=== PATIENT | male | born 1940 | race Caucasian/White ===

== ENCOUNTER 2017-09-09 16:32 | Observation (INO) | payer OTHER ==
[~2017-09-09] VITALS: Ht 165.1 cm; Wt 80.1 kg
[~2017-09-09 16:32] MED LIST: ALLO300 PO; AMLO10 PO; AMLO5; AMLO5 PO; ASPI325; ASPI81CH PO; ASPI81EC; ASPI81EC PO; ATOR10; ATOR40TA; ATOR80 PO; BUME2 PO; CARI350; CARV6.25 PO; CEPH500 PO; CLOP75; CLOP75 PO; DABI150C PO; DIGO.25 PO; DOCU100; DUETACT; DUETACT PO; FURO40; FURO40 PO; FURO80; GLIM4 PO; GLIMEPIRIDE; GLIP5; HYDACE5 PO; HYZAAR; LISI20; LISI5 PO; LOSHYD; LOSHYD100 PO; METAGLIP; METF500; METO100; METO50; NIFE90ER; PIOG30 PO; PIOGLITAZONE; POTA10T; POTA10T PO; POTCHL10ER PO; POTCHL20ER; PRAV20; PRAV40 PO; RAMI5; RXCEPH500 PO; SPIR25; SULTRIDS PO; Sotalol80 MG PO; [UNRECOGNIZED DRUG - OTHER]; [UNRECOGNIZED DRUG - OTHER] PO; [UNRECOGNIZED DRUG - REMARK]; metformin
[2017-09-09 17:16] LABS: BASOPHILS ABSOLUTE AUTO 0.03 K/mm3 (0.00-0.23); BASOPHILS PERCENT AUTO 0 % (0-2); EOSINOPHILS ABSOLUTE AUTO 0.09 K/mm3 (0.00-0.68); EOSINOPHILS PERCENT AUTO 1 % (0-6); Hematocrit 45.7 % (37.0-53.0); Hemoglobin 14.9 g/dL (13.5-17.5); IMMATURE GRAN ABSOLUTE AUTO 0.03 K/mm3 (0.00-0.10); IMMATURE GRAN PERCENT AUTO 0 % (0-1); LYMPHOCYTES ABSOLUTE AUTO 2.85 K/mm3 (0.84-5.20); LYMPHOCYTES PERCENT AUTO 20 % (21-46); MONOCYTES ABSOLUTE AUTO 0.94 K/mm3 (0.16-1.47); MONOCYTES PERCENT AUTO 7 % (4-13); Mean Corpuscular HGB 31.8 pg (26.0-34.0); Mean Corpuscular HGB Conc 32.6 g/dL (31.5-36.5); Mean Corpuscular Volume 98 fL (80-100); NEUTROPHILS ABSOLUTE AUTO 10.42 K/mm3 (1.96-9.15); NEUTROPHILS PERCENT AUTO 73 % (41-73); Platelet Count 203 K/mm3 (150-400); RDW Standard Deviation 50.4 fL (35.1-46.3); Red Blood Cell Count 4.68 M/mm3 (4.30-5.90); White Blood Cell Count 14.36 K/mm3 (4.00-11.30)
[2017-09-09 17:34] LABS: Bicarbonate Venous 29.1 mmol/L (24.0-30.0); PCO2 Venous 37.4 mmHg (38-42); PO2 Venous 42.5 mmHg (38-42)
[2017-09-09 17:38] LABS: Alanine Aminotransfer (ALT/SGP 38 U/L (12-78); Albumin/Globulin Ratio 1.1 (0.8-1.8); Alk Phos 159 U/L (50-136); Anion Gap 7 mmol/L (6-16); Aspartate Aminotrans (AST/SGOT 44 U/L (12-37); Bilirubin, Total 0.9 mg/dL (0.1-1.0); Blood Urea Nitrogen 29 mg/dL (8-24); Bun/Creatinine Ratio 28.2 (12.0-20.0); CO2, Blood 28 mmol/L (21-32); Calcium, Blood 9.6 mg/dL (8.5-10.1); Chloride, Blood 104 mmol/L (98-108); Creatinine, Blood 1.03 mg/dL (0.60-1.20); Globulin, Blood 3.8 g/dL (2.2-4.0); Glomerular Filtration Rate >60 (60-); Glucose, Blood 88 mg/dL (70-99); Potassium, Blood 4.4 mmol/L (3.5-5.5); Sodium, Blood 139 mmol/L (136-145); Total Protein, Blood 7.8 g/dL (6.4-8.2); Troponin I 0.028 ng/mL (0.000-0.040)
[2017-09-09 19:09] LABS: Source, Urine Catheter
[2017-09-09 19:21] LABS: Appearance, Urine Clear (Clear); Bilirubin, Urine Neg (Neg); Blood, Urine Neg (Neg); Color, Urine Yellow (P-Yellow); Glucose Qualitative, Urine 3+ (Neg); Ketones, Urine 1+ (Neg); Leukocyte Esterase, Urine Neg (Neg); Nitrite, Urine Neg (Neg); Protein, Urine Neg (Neg); Urobilinogen, Urine NORM (Normal)
[2017-09-09 20:39] LABS: International Normalized Ratio 1.13; Prothrombin Time Results 11.8 Sec (9.7-11.5)
[2017-09-10 06:05] LABS: BASOPHILS ABSOLUTE AUTO 0.03 K/mm3 (0.00-0.23); BASOPHILS PERCENT AUTO 0 % (0-2); EOSINOPHILS ABSOLUTE AUTO 0.03 K/mm3 (0.00-0.68); EOSINOPHILS PERCENT AUTO 0 % (0-6); Hematocrit 40.1 % (37.0-53.0); Hemoglobin 13.2 g/dL (13.5-17.5); IMMATURE GRAN ABSOLUTE AUTO 0.03 K/mm3 (0.00-0.10); IMMATURE GRAN PERCENT AUTO 0 % (0-1); LYMPHOCYTES ABSOLUTE AUTO 1.94 K/mm3 (0.84-5.20); LYMPHOCYTES PERCENT AUTO 21 % (21-46); MONOCYTES ABSOLUTE AUTO 1.13 K/mm3 (0.16-1.47); MONOCYTES PERCENT AUTO 12 % (4-13); Mean Corpuscular HGB 31.7 pg (26.0-34.0); Mean Corpuscular HGB Conc 32.9 g/dL (31.5-36.5); Mean Corpuscular Volume 96 fL (80-100); Mean Platelet Volume 10.2 fL (9.1-12.4); NEUTROPHILS ABSOLUTE AUTO 6.02 K/mm3 (1.96-9.15); NEUTROPHILS PERCENT AUTO 66 % (41-73); Platelet Count 177 K/mm3 (150-400); RDW Coefficient Variation 14.3 % (11.7-14.2); RDW Standard Deviation 49.8 fL (35.1-46.3); Red Blood Cell Count 4.17 M/mm3 (4.30-5.90); White Blood Cell Count 9.18 K/mm3 (4.00-11.30)
[2017-09-10 06:47] LABS: Alanine Aminotransfer (ALT/SGP 29 U/L (12-78); Albumin, Blood 3.1 g/dL (3.4-5.0); Albumin/Globulin Ratio 0.9 (0.8-1.8); Alk Phos 122 U/L (50-136); Anion Gap 8 mmol/L (6-16); Aspartate Aminotrans (AST/SGOT 23 U/L (12-37); Bilirubin, Total 1.2 mg/dL (0.1-1.0); Blood Urea Nitrogen 26 mg/dL (8-24); Bun/Creatinine Ratio 22.8 (12.0-20.0); CO2, Blood 31 mmol/L (21-32); Calcium, Blood 8.5 mg/dL (8.5-10.1); Chloride, Blood 103 mmol/L (98-108); Creatinine, Blood 1.14 mg/dL (0.60-1.20); Globulin, Blood 3.3 g/dL (2.2-4.0); Glomerular Filtration Rate >60 (60-); Glucose, Blood 60 mg/dL (70-99); Potassium, Blood 3.4 mmol/L (3.5-5.5); Sodium, Blood 142 mmol/L (136-145); Total Protein, Blood 6.4 g/dL (6.4-8.2)
[2017-09-10 15:48] LABS: Source, Urine Clean Catch
[2017-09-10 15:58] LABS: Appearance, Urine Clear (Clear); Bilirubin, Urine Neg (Neg); Blood, Urine 1+ (Neg); Color, Urine Yellow (P-Yellow); Glucose Qualitative, Urine 4+ (Neg); Ketones, Urine Neg (Neg); Leukocyte Esterase, Urine Neg (Neg); Nitrite, Urine Neg (Neg); Protein, Urine Neg (Neg); Specific Gravity, Urine 1.015 (1.003-1.022); Urobilinogen, Urine NORM (Normal)
[2017-09-10 16:23] LABS: Bacteria Not Seen /hpf; Squamous Epithelial Cells Few /hpf (Few); White Blood Cells, Urine 0-2 /hpf (0-5)
[2017-09-11 05:18] LABS: BASOPHILS ABSOLUTE AUTO 0.01 K/mm3 (0.00-0.23); BASOPHILS PERCENT AUTO 0 % (0-2); EOSINOPHILS ABSOLUTE AUTO 0.17 K/mm3 (0.00-0.68); EOSINOPHILS PERCENT AUTO 2 % (0-6); Hematocrit 39.1 % (37.0-53.0); Hemoglobin 12.8 g/dL (13.5-17.5); IMMATURE GRAN ABSOLUTE AUTO 0.02 K/mm3 (0.00-0.10); IMMATURE GRAN PERCENT AUTO 0 % (0-1); LYMPHOCYTES ABSOLUTE AUTO 1.68 K/mm3 (0.84-5.20); LYMPHOCYTES PERCENT AUTO 23 % (21-46); MONOCYTES ABSOLUTE AUTO 0.78 K/mm3 (0.16-1.47); MONOCYTES PERCENT AUTO 11 % (4-13); Mean Corpuscular HGB 31.7 pg (26.0-34.0); Mean Corpuscular HGB Conc 32.7 g/dL (31.5-36.5); Mean Corpuscular Volume 97 fL (80-100); Mean Platelet Volume 10.4 fL (9.1-12.4); NEUTROPHILS ABSOLUTE AUTO 4.63 K/mm3 (1.96-9.15); NEUTROPHILS PERCENT AUTO 64 % (41-73); Platelet Count 161 K/mm3 (150-400); RDW Coefficient Variation 14.3 % (11.7-14.2); RDW Standard Deviation 50.9 fL (35.1-46.3); Red Blood Cell Count 4.04 M/mm3 (4.30-5.90); White Blood Cell Count 7.29 K/mm3 (4.00-11.30)
[2017-09-11 05:45] LABS: Alanine Aminotransfer (ALT/SGP 25 U/L (12-78); Albumin, Blood 2.8 g/dL (3.4-5.0); Albumin/Globulin Ratio 0.8 (0.8-1.8); Alk Phos 110 U/L (50-136); Anion Gap 8 mmol/L (6-16); Aspartate Aminotrans (AST/SGOT 26 U/L (12-37); Bilirubin, Total 0.9 mg/dL (0.1-1.0); Blood Urea Nitrogen 26 mg/dL (8-24); CO2, Blood 33 mmol/L (21-32); Calcium, Blood 8.7 mg/dL (8.5-10.1); Chloride, Blood 102 mmol/L (98-108); Creatinine, Blood 1.13 mg/dL (0.60-1.20); Globulin, Blood 3.4 g/dL (2.2-4.0); Glomerular Filtration Rate >60 (60-); Glucose, Blood 111 mg/dL (70-99); Potassium, Blood 3.6 mmol/L (3.5-5.5); Sodium, Blood 143 mmol/L (136-145); Total Protein, Blood 6.2 g/dL (6.4-8.2)
[2017-09-11 05:52] LABS: Thyroid Stimulating Hormone 0.375 uIU/mL (0.360-4.800)
[2017-09-11] MEDS ORDERED: Acetaminophen325 M1 PO (14:35)
== END 2017-09-11 14:05 | disposition home or self-care (01) ==
LOC: ER 16:32 → MEDS 16:33 → ER 19:42 → MEDS 21:06
PROVIDERS: Emergency Medicine; Internal Medicine
DX: M79.605 Pain in left leg (principal); M10.9 Gout, unspecified; I48.2 Chronic atrial fibrillation; E78.5 Hyperlipidemia, unspecified; I13.0 Hypertensive heart and chronic kidney disease with heart failure and stage 1 through stage 4 chronic kidney disease, or unspecified chronic kidney disease; I50.9 Heart failure, unspecified; E11.22 Type 2 diabetes mellitus with diabetic chronic kidney disease; N18.9 Chronic kidney disease, unspecified; I25.10 Atherosclerotic heart disease of native coronary artery without angina pectoris; W19.XXXA Unspecified fall, initial encounter; Z86.73 Personal history of transient ischemic attack (TIA), and cerebral infarction without residual deficits; Z79.4 Long term (current) use of insulin; Z79.01 Long term (current) use of anticoagulants; Z79.82 Long term (current) use of aspirin
CPT/HCPCS: 36415; 70450; 71045; 72170; 73552; 73562-LT; 80053; 81001; 81003; 82803; 82947; 83605; 83880; 84443; 84484; 85025; 85610; 93005; 93010; 93306; 96361; 96374; 96375; 97110; 97116; 97162; 97165; 97530; 97535; 99285; G8978; G8979; G8987; G8988; G8989; J1650; J2405; J3010; J7120

== ENCOUNTER 2018-01-02 04:01 | Inpatient (IN) | payer OTHER ==
[~2018-01-02] VITALS: Ht 165.1 cm; Wt 75.0 kg
[~2018-01-02 04:01] MED LIST changes: +Acetaminophen325 M1 PO
[2018-01-02 04:15] LABS: Calcium, Ionized (POC) 1.28 mmol/L (1.10-1.46); Chloride (POC) 99 mmol/L (98-108); Creatinine (POC) 1.2 mg/dL (0.8-1.3); Glucose (ISTAT POC) 146 mg/dL (70-99); Potassium (POC) 3.6 mmol/L (3.5-5.5); Sodium (POC) 140 mmol/L (135-148); Total CO2 (POC) 30 mmol/L (21-32)
[2018-01-02 04:25] LABS: BASOPHILS ABSOLUTE AUTO 0.05 K/mm3 (0.00-0.23); BASOPHILS PERCENT AUTO 1 % (0-2); EOSINOPHILS ABSOLUTE AUTO 0.28 K/mm3 (0.00-0.68); EOSINOPHILS PERCENT AUTO 3 % (0-6); Hemoglobin 13.9 g/dL (13.5-17.5); IMMATURE GRAN ABSOLUTE AUTO 0.03 K/mm3 (0.00-0.10); IMMATURE GRAN PERCENT AUTO 0 % (0-1); LYMPHOCYTES ABSOLUTE AUTO 3.23 K/mm3 (0.84-5.20); LYMPHOCYTES PERCENT AUTO 32 % (21-46); MONOCYTES ABSOLUTE AUTO 0.53 K/mm3 (0.16-1.47); MONOCYTES PERCENT AUTO 5 % (4-13); Mean Corpuscular HGB Conc 32.3 g/dL (31.5-36.5); Mean Corpuscular Volume 96 fL (80-100); Mean Platelet Volume 9.9 fL (9.1-12.4); NEUTROPHILS ABSOLUTE AUTO 6.07 K/mm3 (1.96-9.15); NEUTROPHILS PERCENT AUTO 60 % (41-73); Platelet Count 240 K/mm3 (150-400); RDW Coefficient Variation 16.1 % (11.7-14.2); RDW Standard Deviation 56.8 fL (35.1-46.3); Red Blood Cell Count 4.48 M/mm3 (4.30-5.90); White Blood Cell Count 10.19 K/mm3 (4.00-11.30)
[2018-01-02 04:48] LABS: Alanine Aminotransfer (ALT/SGP 17 U/L (12-78); Albumin, Blood 3.5 g/dL (3.4-5.0); Albumin/Globulin Ratio 0.9 (0.8-1.8); Alk Phos 144 U/L (50-136); Anion Gap 9 mmol/L (6-16); Aspartate Aminotrans (AST/SGOT 112 U/L (12-37); Bilirubin, Total 0.8 mg/dL (0.1-1.0); Blood Urea Nitrogen 28 mg/dL (8-24); Bun/Creatinine Ratio 25.2 (12.0-20.0); CO2, Blood 30 mmol/L (21-32); Calcium, Blood 9.6 mg/dL (8.5-10.1); Chloride, Blood 103 mmol/L (98-108); Creatinine, Blood 1.11 mg/dL (0.60-1.20); Globulin, Blood 3.9 g/dL (2.2-4.0); Glomerular Filtration Rate >60 (60-); Glucose, Blood 149 mg/dL (70-99); Magnesium, Blood 2.3 mg/dL (1.6-2.4); Potassium, Blood 3.7 mmol/L (3.5-5.5); Sodium, Blood 142 mmol/L (136-145); Total Protein, Blood 7.4 g/dL (6.4-8.2)
[2018-01-02 05:11] LABS: International Normalized Ratio 1.12; Prothrombin Time Results 11.5 Sec (9.7-11.5)
[2018-01-02 05:48] LABS: CHOL/HDL RATIO 2.3; Cholesterol 98 mg/dL (50-200); HDL Cholesterol 43 mg/dL (>39); LDL/HDL RATIO 0.8; Low Density Lipoprotein Chol 36 mg/dL (0-110); Triglycerides 97 mg/dL (30-160); Very Low Density Lipoprot Chol 19 mg/dL (6-32)
[2018-01-03 04:11] LABS: BASOPHILS ABSOLUTE AUTO 0.02 K/mm3 (0.00-0.23); BASOPHILS PERCENT AUTO 0 % (0-2); EOSINOPHILS ABSOLUTE AUTO 0.07 K/mm3 (0.00-0.68); EOSINOPHILS PERCENT AUTO 1 % (0-6); Hematocrit 40.3 % (37.0-53.0); Hemoglobin 13.4 g/dL (13.5-17.5); IMMATURE GRAN ABSOLUTE AUTO 0.03 K/mm3 (0.00-0.10); IMMATURE GRAN PERCENT AUTO 0 % (0-1); LYMPHOCYTES ABSOLUTE AUTO 1.61 K/mm3 (0.84-5.20); LYMPHOCYTES PERCENT AUTO 18 % (21-46); MONOCYTES PERCENT AUTO 9 % (4-13); Mean Corpuscular HGB 31.6 pg (26.0-34.0); Mean Corpuscular HGB Conc 33.3 g/dL (31.5-36.5); Mean Corpuscular Volume 95 fL (80-100); Mean Platelet Volume 9.8 fL (9.1-12.4); NEUTROPHILS ABSOLUTE AUTO 6.38 K/mm3 (1.96-9.15); NEUTROPHILS PERCENT AUTO 72 % (41-73); Platelet Count 190 K/mm3 (150-400); RDW Standard Deviation 55.7 fL (35.1-46.3); Red Blood Cell Count 4.24 M/mm3 (4.30-5.90); White Blood Cell Count 8.91 K/mm3 (4.00-11.30)
[2018-01-03 04:34] LABS: Alanine Aminotransfer (ALT/SGP 54 U/L (12-78); Albumin, Blood 2.9 g/dL (3.4-5.0); Albumin/Globulin Ratio 0.8 (0.8-1.8); Alk Phos 131 U/L (50-136); Anion Gap 9 mmol/L (6-16); Aspartate Aminotrans (AST/SGOT 338 U/L (12-37); Bilirubin, Total 1.2 mg/dL (0.1-1.0); Blood Urea Nitrogen 31 mg/dL (8-24); Bun/Creatinine Ratio 27.7 (12.0-20.0); CO2, Blood 31 mmol/L (21-32); Calcium, Blood 8.2 mg/dL (8.5-10.1); Chloride, Blood 99 mmol/L (98-108); Creatinine, Blood 1.12 mg/dL (0.60-1.20); Globulin, Blood 3.6 g/dL (2.2-4.0); Glomerular Filtration Rate >60 (60-); Glucose, Blood 134 mg/dL (70-99); Potassium, Blood 3.1 mmol/L (3.5-5.5); Sodium, Blood 139 mmol/L (136-145); Total Protein, Blood 6.5 g/dL (6.4-8.2)
[2018-01-04 04:31] LABS: Anion Gap 7 mmol/L (6-16); Blood Urea Nitrogen 33 mg/dL (8-24); Bun/Creatinine Ratio 32.7 (12.0-20.0); CO2, Blood 32 mmol/L (21-32); Calcium, Blood 8.4 mg/dL (8.5-10.1); Chloride, Blood 102 mmol/L (98-108); Creatinine, Blood 1.01 mg/dL (0.60-1.20); Glomerular Filtration Rate >60 (60-); Glucose, Blood 95 mg/dL (70-99); Potassium, Blood 3.8 mmol/L (3.5-5.5); Sodium, Blood 141 mmol/L (136-145)
[2018-01-05] MEDS ORDERED: ELIQUIS5 MG PO (14:30)
[2018-01-05] MEDS ORDERED: CARV6.25 PO (14:30)
[2018-01-05] MEDS ORDERED: POTCHL20ER PO (14:33)
[2018-01-05] MEDS ORDERED: SPIR25 PO (14:33)
[2018-01-05] MEDS ORDERED: FURO80 PO (14:34)
== END 2018-01-05 15:30 | disposition home or self-care (01) | DRG 280 ==
LOC: ER 04:01 → PCU 05:32
PROVIDERS: Emergency Medicine; Internal Medicine; Internal Medicine Cardiovascular Disease
DX: I21.4 Non-ST elevation (NSTEMI) myocardial infarction (principal); I50.43 Acute on chronic combined systolic (congestive) and diastolic (congestive) heart failure; J96.01 Acute respiratory failure with hypoxia; I48.92 Unspecified atrial flutter; I13.0 Hypertensive heart and chronic kidney disease with heart failure and stage 1 through stage 4 chronic kidney disease, or unspecified chronic kidney disease; I25.10 Atherosclerotic heart disease of native coronary artery without angina pectoris; I25.5 Ischemic cardiomyopathy; I35.0 Nonrheumatic aortic (valve) stenosis; G20 Parkinson's disease; R26.81 Unsteadiness on feet; N18.9 Chronic kidney disease, unspecified; Z95.1 Presence of aortocoronary bypass graft; Z86.73 Personal history of transient ischemic attack (TIA), and cerebral infarction without residual deficits; Z87.891 Personal history of nicotine dependence; Z66 Do not resuscitate; I25.2 Old myocardial infarction; E87.6 Hypokalemia; Z79.01 Long term (current) use of anticoagulants; Z79.82 Long term (current) use of aspirin
CPT/HCPCS: 36415; 71045; 80047; 80048; 80053; 80061; 82947; 83036; 83735; 83880; 84484; 85014; 85025; 85610; 85730; 93005; 93010; 93306; 94660; 94762; 96365; 96375; 97116; 97161; 99285-25; G8978; G8979; G8980; J1644; J1815; J1940

== ENCOUNTER → 2018-09-17 | Outpatient (CLI) | payer OTHER ==
[~2018-09-17] MED LIST changes: +ELIQUIS5 MG PO; +FURO80 PO; +POTCHL20ER PO; +SPIR25 PO
== END | disposition home or self-care (01) ==
LOC: LAB SHORT 12:10 → PLD 12:10
DX: D04.21 Carcinoma in situ of skin of right ear and external auricular canal (principal)
CPT/HCPCS: 88305

== ENCOUNTER 2018-12-13 13:48 | Inpatient (IN) | payer OTHER ==
[~2018-12-13] VITALS: Ht 167.6 cm; Wt 87.3 kg
[2018-12-13 14:13] LABS: BASOPHILS ABSOLUTE AUTO 0.04 K/mm3 (0.00-0.23); BASOPHILS PERCENT AUTO 1 % (0-2); EOSINOPHILS ABSOLUTE AUTO 0.13 K/mm3 (0.00-0.68); EOSINOPHILS PERCENT AUTO 2 % (0-6); Hematocrit 37.6 % (37.0-53.0); Hemoglobin 11.7 g/dL (13.5-17.5); IMMATURE GRAN ABSOLUTE AUTO 0.02 K/mm3 (0.00-0.10); IMMATURE GRAN PERCENT AUTO 0 % (0-1); LYMPHOCYTES ABSOLUTE AUTO 1.79 K/mm3 (0.84-5.20); LYMPHOCYTES PERCENT AUTO 22 % (21-46); MONOCYTES ABSOLUTE AUTO 0.57 K/mm3 (0.16-1.47); MONOCYTES PERCENT AUTO 7 % (4-13); Mean Corpuscular HGB Conc 31.1 g/dL (31.5-36.5); Mean Corpuscular Volume 93 fL (80-100); Mean Platelet Volume 10.8 fL (9.1-12.4); NEUTROPHILS PERCENT AUTO 69 % (41-73); Platelet Count 192 K/mm3 (150-400); RDW Coefficient Variation 15.9 % (11.7-14.2); RDW Standard Deviation 54.5 fL (35.1-46.3); Red Blood Cell Count 4.04 M/mm3 (4.30-5.90); White Blood Cell Count 8.15 K/mm3 (4.00-11.30)
[2018-12-13 14:55] LABS: Alanine Aminotransfer (ALT/SGP 33 U/L (12-78); Albumin, Blood 3.3 g/dL (3.4-5.0); Albumin/Globulin Ratio 1.1 (0.8-1.8); Alk Phos 168 U/L (50-136); Anion Gap 5 mmol/L (6-16); Aspartate Aminotrans (AST/SGOT 46 U/L (12-37); Bilirubin, Total 1.4 mg/dL (0.1-1.0); Blood Urea Nitrogen 31 mg/dL (8-24); Bun/Creatinine Ratio 27.2 (12.0-20.0); CO2, Blood 28 mmol/L (21-32); Calcium, Blood 8.2 mg/dL (8.5-10.1); Chloride, Blood 108 mmol/L (98-108); Creatinine, Blood 1.14 mg/dL (0.60-1.20); Globulin, Blood 3.1 g/dL (2.2-4.0); Glomerular Filtration Rate >60 (60-); Glucose, Blood 217 mg/dL (70-99); Potassium, Blood 4.1 mmol/L (3.5-5.5); Sodium, Blood 141 mmol/L (136-145); Total Protein, Blood 6.4 g/dL (6.4-8.2)
[2018-12-13 14:56] LABS: Troponin I 0.023 ng/mL (0.000-0.040)
[2018-12-13 19:27] LABS: International Normalized Ratio 1.2; Prothrombin Time Results 12.5 Sec (9.7-11.5)
--- NOTE | 2018-12-13 20:00 | NUR ---
PCU ADMIT PT BROUGHT TO PCU RM 11 FROM THE ER BY JINNY @ APPROX 1930. PT A&O X4. PT ABLE TO STAND AND AMBULATE TO PCU BED W/ SBA. PT LUNG SOUNDS CLEAR. SPO2 > 92% ON RA. MONITOR SHOWS RHYTHM W/ BIGEMINAL PVC'S, HR 60-80. PT DENIES LOSING CONSCIOUSNESS AT [facility] PRIOR TO ADMISSION. PT STATES "I FEEL FINE" AND STATES READINESS TO GO HOME. PT ALSO STATES HAVING AN APPOINTMENT SCHEDULED W/ MD GAMEZ THIS SATURDAY. WILL CONTINUE TO MONITOR AND PROVIDE CARE.
[2018-12-13] MEDS ORDERED: ALLO300 PO (20:08)
[2018-12-13] MEDS ORDERED: GABA300 PO (20:09)
[2018-12-13] MEDS ORDERED: Carbidopa-Levo1 EACH PO (20:09)
[2018-12-13] MEDS ORDERED: RYTARY ER 48.71 EACH PO (20:10)
--- NOTE | 2018-12-14 01:00 | NUR ---
PT STATES FEELING SOB WHILE RESTING IN BED. SPO2 87-89% ON RA. 2L NC APPLIED W/ SPO2 NOW 94%.
[2018-12-14 02:13] LABS: BASOPHILS ABSOLUTE AUTO 0.04 K/mm3 (0.00-0.23); BASOPHILS PERCENT AUTO 1 % (0-2); EOSINOPHILS ABSOLUTE AUTO 0.19 K/mm3 (0.00-0.68); EOSINOPHILS PERCENT AUTO 2 % (0-6); Hematocrit 35.1 % (37.0-53.0); Hemoglobin 10.8 g/dL (13.5-17.5); IMMATURE GRAN ABSOLUTE AUTO 0.02 K/mm3 (0.00-0.10); IMMATURE GRAN PERCENT AUTO 0 % (0-1); LYMPHOCYTES PERCENT AUTO 18 % (21-46); MONOCYTES ABSOLUTE AUTO 0.54 K/mm3 (0.16-1.47); MONOCYTES PERCENT AUTO 7 % (4-13); Mean Corpuscular HGB 29.3 pg (26.0-34.0); Mean Corpuscular HGB Conc 30.8 g/dL (31.5-36.5); Mean Corpuscular Volume 95 fL (80-100); Mean Platelet Volume 10.7 fL (9.1-12.4); NEUTROPHILS ABSOLUTE AUTO 6.03 K/mm3 (1.96-9.15); NEUTROPHILS PERCENT AUTO 73 % (41-73); Platelet Count 157 K/mm3 (150-400); RDW Coefficient Variation 15.9 % (11.7-14.2); RDW Standard Deviation 55.7 fL (35.1-46.3); Red Blood Cell Count 3.69 M/mm3 (4.30-5.90); White Blood Cell Count 8.32 K/mm3 (4.00-11.30)
[2018-12-14 02:35] LABS: Alanine Aminotransfer (ALT/SGP 42 U/L (12-78); Albumin, Blood 2.9 g/dL (3.4-5.0); Alk Phos 150 U/L (50-136); Anion Gap 5 mmol/L (6-16); Aspartate Aminotrans (AST/SGOT 40 U/L (12-37); Bilirubin, Total 0.7 mg/dL (0.1-1.0); Blood Urea Nitrogen 27 mg/dL (8-24); Bun/Creatinine Ratio 25.2 (12.0-20.0); CO2, Blood 30 mmol/L (21-32); Calcium, Blood 8.3 mg/dL (8.5-10.1); Chloride, Blood 108 mmol/L (98-108); Creatinine, Blood 1.07 mg/dL (0.60-1.20); Globulin, Blood 2.8 g/dL (2.2-4.0); Glomerular Filtration Rate >60 (60-); Glucose, Blood 172 mg/dL (70-99); Potassium, Blood 3.6 mmol/L (3.5-5.5); Sodium, Blood 143 mmol/L (136-145); Total Protein, Blood 5.7 g/dL (6.4-8.2)
--- NOTE | 2018-12-14 06:39 | NUR ---
SHIFT SUMMARY PT A&O X4. VSS. PT ON RA ON ARRIVAL, NOW WEARING 2L NC. OTHERWISE NO CHANGES. MONITOR CONTINUES TO SHOW RHYTHM W/ FREQUENT PVC'S. HR 60-80. HEPARIN GTT INFUSING PER ORDERS. CARDIAC CONSULT CALLED TO ANSWERING SERVICE. WILL CONTINUE TO MONITOR AND PROVIDE CARE UNTIL REPORT OFF TO DAY SHIFT RN.
--- NOTE | 2018-12-14 09:00 | NUR ---
DR. QUINTANA IN ROOM. PT WAS CONVERSING AND THEN STOPPED TALKING AND HAD A BLANK STARE. PT SITTING IN CHAIR, VITAL SIGNS TAKEN AND STABLE. NO CHANGES ON MONITOR. HE WAS UNRESPONSIVE FOR SEVERAL MINUTES. THEN HE WAS ABLE TO COMMUNICATE, BUT UNABLE TO SEE AND STATED HE HAD A HEADACHE ON THE LEFT SIDE. PT REGAINED VISION QUICKLY. PT ENCOURAGED TO STAY IN CHAIR AND CALL IF HE NEEDED TO GET UP FOR SAFETY. WILL CONTINUE TO MONITOR CLOSELY.
--- NOTE | 2018-12-14 18:44 | NUR ---
SHIFT SUMMARY PT ALERT AND ORIENTED. VS STABLE. O2 SATS REMAIN ABOVE 90% ON 2L NC. HR SHOWS AFIB WITH PVC ON THE MONITOR. NO OTHER SYNCOPAL EPISODES SINCE THIS AM. PT DENIES ANY PAIN. PLAN FOR EEG TOMORROW. WILL CONTINUE TO MONITOR AND REPORT TO ONCOMING RN. CALL LIGHT IN REACH.
--- NOTE | 2018-12-14 21:56 | NUR ---
CARE ASSUMED CARE AND REPORT ASSUMED FROM LISA UREÑA. PT SITTING UP IN BED WATCHING TV. DENIES PAIN AT THIS TIME. VSS. SPO2 97% ON RA; SUPPLEMENTAL O2 REMOVED. AFEBRILE. LUNG SOUNDS CLEAR. HR AFIB/A FLUTTER. IV SALINE LOCKED. CALL LIGHT WITHIN REACH. WILL CONTINUE TO MONITOR.
--- NOTE | 2018-12-15 00:02 | NUR ---
REASSESSMENT PT SLEEPING BUT EASILY AWAKENS TO VERBAL STIMULI. DENIES PAIN AT THIS TIME. VSS. TURNS SELF IN BED. NO COMPLAINTS. NO ACUTE DISTRESS. WILL CONTINUE TO MONITOR.
--- NOTE | 2018-12-15 04:19 | NUR ---
REASSSESSMENT PT REMAINS SLEEPING EXCEPT WHEN HE HAS TO URINATE. HE NEEDS ASSISTANCE WITH URINAL. VOIDING MULTIPLE TIMES THROUGHOUT NIGHT. VSS. NAD. WILL CONTINUE TO MONITOR.
--- NOTE | 2018-12-15 06:19 | NUR ---
SHIFT SUMMARY PT SLEPT MOST OF NIGHT; WOULD AWAKEN AFTER SOILING SHEETS WHILE ATTEMPTING TO VOID IN URINAL. NO SIGNS OF ACUTE DISTRESS DURING SHIFT. NO C/O PAIN. VSS ENTIRE SHIFT. AFBEBRILE. OUT OF BED TO TOILET WITH JUST STANDBY ASSIST. VSS. WILL GIVE BEDSIDE, HANDOFF REPORT TO DAY RN.
--- NOTE | 2018-12-15 09:29 | NUR ---
RECEIVED REPORT AND ASSUMED CARE OF PATIENT. AT SHIFT CHANGE - BED SIDE REPORT PT HAD GOTTEN OUT OF BED AND IS SITTIN UP IN THE RECLINING CHAIR. PT IS SITTING LOOKING DOWN AT THE GROUND NOT FOCUSING ON ONE THING, YET NOT RESPONDING TO VERBAL STIMULI. THIS RN, NIRANJAN SANTO AND NIRANJAN PONCE ALL TRIED TO SPEAK WITH PT AND GET HIM TO RESPOND. EPISODE LASTED APPROXIMATELY 5 MIN. PT BEGAN SPEAKING AND IS ANSWERING QUESTIONS APPROPRIATELY, AND FOLLOWING DIRECTIONS AT THIS TIME. WILL CONTINUE TO MONITOR.
--- NOTE | 2018-12-15 16:00 | NUR ---
EEG COMPLETE. CALL PLACED TO [facility] OFFICE FOR THUMBS UP TO DISCHARGE.
--- NOTE | 2018-12-15 19:27 | NUR ---
GAVE DISCHARGE INSTRUCTIONS TO PATIENT AND HIS DAUGHTER. MED REC COMPLETED WITH CASEY MONTE[facility] [place], SHE IS GOING TO BRING THE CAR/LEVADOPA TO THE PCP ATTENTION AND LET THE PCP DECIDE WHAT REGIMEN SHE WOULD LIKE FOR THE PATIENT.
== END 2018-12-15 18:55 | disposition home or self-care (01) | DRG 308 ==
LOC: ER 13:48 → PCU 17:25
PROVIDERS: Emergency Medicine; ADMIT Family Medicine
DX: I44.2 Atrioventricular block, complete (principal); I50.23 Acute on chronic systolic (congestive) heart failure; G45.9 Transient cerebral ischemic attack, unspecified; I71.4 Abdominal aortic aneurysm, without rupture; Z87.891 Personal history of nicotine dependence; I25.2 Old myocardial infarction; I35.0 Nonrheumatic aortic (valve) stenosis; I25.5 Ischemic cardiomyopathy; E11.9 Type 2 diabetes mellitus without complications; E78.5 Hyperlipidemia, unspecified; I48.2 Chronic atrial fibrillation; M10.9 Gout, unspecified; Z95.1 Presence of aortocoronary bypass graft; Z89.011 Acquired absence of right thumb; Z79.84 Long term (current) use of oral hypoglycemic drugs; I25.10 Atherosclerotic heart disease of native coronary artery without angina pectoris; Z66 Do not resuscitate; Z86.73 Personal history of transient ischemic attack (TIA), and cerebral infarction without residual deficits; G20 Parkinson's disease; R56.9 Unspecified convulsions; R53.1 Weakness; G90.9 Disorder of the autonomic nervous system, unspecified; R55 Syncope and collapse; I50.9 Heart failure, unspecified; I11.0 Hypertensive heart disease with heart failure
CPT/HCPCS: 36415; 70450; 71045; 80053; 83880; 84484; 85025; 85610; 85730; 87081; 93005; 93010; 93880; 95819; 99285-25; C8929; J1644; Q9957

== ENCOUNTER 2019-02-22 03:11 | Emergency (ER) | payer OTHER ==
[~2019-02-22] VITALS: Ht 167.6 cm; Wt 85.7 kg
[~2019-02-22 03:11] MED LIST changes: +Carbidopa-Levo1 EACH PO; +GABA300 PO; +RYTARY ER 48.71 EACH PO
[2019-02-22] MEDS ORDERED: Zovirax800 MG PO (03:47)
== END 2019-02-22 07:50 | disposition home or self-care (01) ==
LOC: ER 03:11
DX: B02.9 Zoster without complications (principal); E11.22 Type 2 diabetes mellitus with diabetic chronic kidney disease; I12.9 Hypertensive chronic kidney disease with stage 1 through stage 4 chronic kidney disease, or unspecified chronic kidney disease; N18.9 Chronic kidney disease, unspecified; I48.91 Unspecified atrial fibrillation; G20 Parkinson's disease; E78.5 Hyperlipidemia, unspecified; Z87.891 Personal history of nicotine dependence; Z79.899 Other long term (current) drug therapy; Z79.82 Long term (current) use of aspirin; Z79.01 Long term (current) use of anticoagulants
CPT/HCPCS: 99283

== ENCOUNTER 2019-03-16 15:24 | Emergency (ER) | payer OTHER ==
[~2019-03-16] VITALS: Ht 167.6 cm; Wt 85.7 kg
[~2019-03-16 15:24] MED LIST changes: +Zovirax800 MG PO
[2019-03-16 16:12] LABS: BASOPHILS ABSOLUTE AUTO 0.02 K/mm3 (0.00-0.23); BASOPHILS PERCENT AUTO 0 % (0-2); EOSINOPHILS ABSOLUTE AUTO 0.15 K/mm3 (0.00-0.68); EOSINOPHILS PERCENT AUTO 2 % (0-6); Hematocrit 36.5 % (37.0-53.0); Hemoglobin 11.4 g/dL (13.5-17.5); IMMATURE GRAN ABSOLUTE AUTO 0.02 K/mm3 (0.00-0.10); IMMATURE GRAN PERCENT AUTO 0 % (0-1); LYMPHOCYTES ABSOLUTE AUTO 1.27 K/mm3 (0.84-5.20); LYMPHOCYTES PERCENT AUTO 19 % (21-46); MONOCYTES ABSOLUTE AUTO 0.54 K/mm3 (0.16-1.47); MONOCYTES PERCENT AUTO 8 % (4-13); Mean Corpuscular HGB 28.7 pg (26.0-34.0); Mean Corpuscular HGB Conc 31.2 g/dL (31.5-36.5); Mean Corpuscular Volume 92 fL (80-100); Mean Platelet Volume 9.9 fL (9.1-12.4); NEUTROPHILS ABSOLUTE AUTO 4.74 K/mm3 (1.96-9.15); NEUTROPHILS PERCENT AUTO 70 % (41-73); Platelet Count 213 K/mm3 (150-400); RDW Coefficient Variation 18.1 % (11.7-14.2); RDW Standard Deviation 60.3 fL (35.1-46.3); Red Blood Cell Count 3.97 M/mm3 (4.30-5.90); White Blood Cell Count 6.74 K/mm3 (4.00-11.30)
[2019-03-16 16:25] LABS: International Normalized Ratio 1.11; Prothrombin Time Results 11.7 Sec (9.7-11.5)
[2019-03-16 16:35] LABS: Albumin, Blood 3.1 g/dL (3.4-5.0); Albumin/Globulin Ratio 0.8 (0.8-1.8); Bilirubin, Total 0.9 mg/dL (0.1-1.0); Bun/Creatinine Ratio 30.7 (12.0-20.0); Calcium, Blood 8.9 mg/dL (8.5-10.1); Creatinine, Blood 1.27 mg/dL (0.60-1.20); Potassium, Blood 4.5 mmol/L (3.5-5.5); Total Protein, Blood 7.1 g/dL (6.4-8.2)
[2019-03-16] MEDS ORDERED: HYDR25SUP PR (16:53)
== END 2019-03-16 17:30 | disposition home or self-care (01) ==
LOC: ER 15:24
PROVIDERS: Physician Assistant
DX: K64.8 Other hemorrhoids (principal); L89.309 Pressure ulcer of unspecified buttock, unspecified stage; I25.10 Atherosclerotic heart disease of native coronary artery without angina pectoris; I12.9 Hypertensive chronic kidney disease with stage 1 through stage 4 chronic kidney disease, or unspecified chronic kidney disease; E11.22 Type 2 diabetes mellitus with diabetic chronic kidney disease; N18.9 Chronic kidney disease, unspecified; I48.91 Unspecified atrial fibrillation; E78.5 Hyperlipidemia, unspecified; Z86.73 Personal history of transient ischemic attack (TIA), and cerebral infarction without residual deficits; Z87.891 Personal history of nicotine dependence; Z79.899 Other long term (current) drug therapy; Z79.82 Long term (current) use of aspirin; Z79.01 Long term (current) use of anticoagulants
CPT/HCPCS: 46600; 80053; 82272; 85025; 85610; 86850; 86900; 86901; 99284

== ENCOUNTER 2019-06-06 21:19 | Inpatient (IN) | payer OTHER ==
[~2019-06-06] VITALS: Ht 167.6 cm; Wt 97.1 kg
[~2019-06-06 21:19] MED LIST changes: +HYDR25SUP PR
[2019-06-06 21:48] LABS: BASOPHILS ABSOLUTE AUTO 0.03 K/mm3 (0.00-0.23); BASOPHILS PERCENT AUTO 0 % (0-2); EOSINOPHILS ABSOLUTE AUTO 0.13 K/mm3 (0.00-0.68); EOSINOPHILS PERCENT AUTO 2 % (0-6); Hematocrit 34.6 % (37.0-53.0); Hemoglobin 10.1 g/dL (13.5-17.5); IMMATURE GRAN ABSOLUTE AUTO 0.03 K/mm3 (0.00-0.10); IMMATURE GRAN PERCENT AUTO 0 % (0-1); LYMPHOCYTES ABSOLUTE AUTO 1.32 K/mm3 (0.84-5.20); LYMPHOCYTES PERCENT AUTO 18 % (21-46); MONOCYTES PERCENT AUTO 7 % (4-13); Mean Corpuscular HGB 24.2 pg (26.0-34.0); Mean Corpuscular HGB Conc 29.2 g/dL (31.5-36.5); Mean Corpuscular Volume 83 fL (80-100); Mean Platelet Volume 10.2 fL (9.1-12.4); NEUTROPHILS ABSOLUTE AUTO 5.54 K/mm3 (1.96-9.15); NEUTROPHILS PERCENT AUTO 73 % (41-73); Platelet Count 237 K/mm3 (150-400); RDW Coefficient Variation 19.3 % (11.7-14.2); RDW Standard Deviation 56.9 fL (35.1-46.3); Red Blood Cell Count 4.18 M/mm3 (4.30-5.90); White Blood Cell Count 7.55 K/mm3 (4.00-11.30)
[2019-06-06 22:03] LABS: International Normalized Ratio 1.17; Prothrombin Time Results 12.4 Sec (9.7-11.5)
[2019-06-06 22:08] LABS: Albumin, Blood 3.3 g/dL (3.4-5.0); Albumin/Globulin Ratio 0.9 (0.8-1.8); Bilirubin, Total 0.9 mg/dL (0.1-1.0); Bun/Creatinine Ratio 33.6 (12.0-20.0); Calcium, Blood 8.4 mg/dL (8.5-10.1); Creatinine, Blood 1.31 mg/dL (0.60-1.20); Globulin, Blood 3.5 g/dL (2.2-4.0); Potassium, Blood 4.5 mmol/L (3.5-5.5); Total Protein, Blood 6.8 g/dL (6.4-8.2); Troponin I 0.05 ng/mL (0.000-0.040)
--- NOTE | 2019-06-07 04:40 | NUR ---
0330 REPORT RECEIVED FROM NIRANJAN MAYORGA IN ER; PT MOVED FROM CART TO BED VIA SLIDER SHEET X 3 ASSIST; PT UNSURE WHAT ANY OF HIS MEDICATIONS ARE THAT HE CURRENTLY TAKES. 0350 PT UP BSC X 2 STANDBY ASSIST VIA WALKER AND GAIT BELT, PT HAD MUCH DIFFICULTY COMING STANDING POSITION, PIVOTING BACK AND FORTH; PT VERY WEAK AND REQUIRES ASSISTANCE WITH ALL ADLS.
--- NOTE | 2019-06-07 05:53 | NUR ---
SHIFT SUMMARY: 78 Y/O MALE RESTED COMFORTABLY AFTER ARRIVAL TO UNIT; DENIES NEED FOR PAIN AT THIS TIME; LEFT SHOULDER SLIGHTLY UNCOMFORTABLE TO TOUCH (FALL AT HOME) WITH LIMITED ROM NOTED EARLIER WHILE GETTING UP VOID VIA BSC; ALERT AND ORIENTED X 3, ABLE TO FOLLOW ALL SIMPLE VERBAL COMMANDS; TELEMETRY REFLECTS A/FIB PER DORI HERNADEZ; BED ALARM APPLIED, BED LOW POSITION WITH CALL LIGHT AT SIDE.
--- NOTE | 2019-06-07 17:45 | NUR ---
SUMM- PT A/O X3, KNOWS LIMITS. UP IN THE CHAIR MOST OF THE DAY. 1SBA TO BATHROOM OR CHAIR. AMBULATED IN [place]ERGER TODAY WITH PT. ADQ STRENGTH, SLOW MOVING. NO DIZZINESS UPON STANDING OR AT ALL TODAY. ORTHOS NEGATIVE. BLOOD SUGARS STABLE. VSS. TOLERATING FOOD AND FLUIDS. CALLED IN CARDIO CONSULT PEBBLES TODAY. TELE BIGIMINAL RHYTHM RATE IN THE S.
--- NOTE | 2019-06-08 04:44 | NUR ---
RADIATION ENGINEER SUMMARY NO ACUTE CHANGES. PT AAOX3 WITH SOME INTERMITTENT CONFUSION/FORGETFULNESS. NO SYNCOPAL EPISODES THIS SHIFT. PT ABLE TO AMBULATE WITH A 1 PERSON ASSIST AND A FWW. PT DENIED PAIN THROUGH THE SHIFT AFTER GETTING A VICODIN JUST BEFORE START OF SHIFT. BUSINESS INTERN REPORTS BIGEMENY RHYTHM WITH CONTROLLED RATE. VSS, WILL CONTINUE TO MONITOR.
[2019-06-08 05:25] LABS: BASOPHILS ABSOLUTE AUTO 0.03 K/mm3 (0.00-0.23); BASOPHILS PERCENT AUTO 0 % (0-2); EOSINOPHILS ABSOLUTE AUTO 0.27 K/mm3 (0.00-0.68); EOSINOPHILS PERCENT AUTO 4 % (0-6); Hemoglobin 9.4 g/dL (13.5-17.5); IMMATURE GRAN ABSOLUTE AUTO 0.03 K/mm3 (0.00-0.10); IMMATURE GRAN PERCENT AUTO 0 % (0-1); LYMPHOCYTES ABSOLUTE AUTO 1.17 K/mm3 (0.84-5.20); LYMPHOCYTES PERCENT AUTO 16 % (21-46); MONOCYTES ABSOLUTE AUTO 0.59 K/mm3 (0.16-1.47); MONOCYTES PERCENT AUTO 8 % (4-13); Mean Corpuscular HGB 24.1 pg (26.0-34.0); Mean Corpuscular HGB Conc 28.5 g/dL (31.5-36.5); Mean Corpuscular Volume 85 fL (80-100); Mean Platelet Volume 10.2 fL (9.1-12.4); NEUTROPHILS ABSOLUTE AUTO 5.34 K/mm3 (1.96-9.15); NEUTROPHILS PERCENT AUTO 72 % (41-73); Platelet Count 230 K/mm3 (150-400); RDW Coefficient Variation 19.4 % (11.7-14.2); RDW Standard Deviation 57.6 fL (35.1-46.3); White Blood Cell Count 7.43 K/mm3 (4.00-11.30)
[2019-06-08 05:48] LABS: Percent Saturation 9.7 % (20.0-50.0)
[2019-06-08 06:02] LABS: Albumin, Blood 3.1 g/dL (3.4-5.0); Bilirubin, Total 0.9 mg/dL (0.1-1.0); Bun/Creatinine Ratio 35.3 (12.0-20.0); Calcium, Blood 8.7 mg/dL (8.5-10.1); Creatinine, Blood 1.33 mg/dL (0.60-1.20); Globulin, Blood 3.2 g/dL (2.2-4.0); Potassium, Blood 3.8 mmol/L (3.5-5.5); Total Protein, Blood 6.3 g/dL (6.4-8.2); Troponin I 0.064 ng/mL (0.000-0.040)
--- NOTE | 2019-06-08 07:48 | NUR ---
PULSE VIA SPO2 40, TOPHER IN PCU CALLED AND PULSE IS 76 AND PATIENT IS IN BIGEMINY.
[2019-06-08] MEDS ORDERED: Bumetanide1 MG PO (09:32)
[2019-06-08] MEDS ORDERED: GABA100 PO (09:34)
[2019-06-08] MEDS ORDERED: ACET325 PO (09:35)
--- NOTE | 2019-06-08 14:11 | NUR ---
PCU HYDRAULIC BARKER OPERATOR CALLED TO SAY THAT PATIENT HAD A 24 BEAT RUN OF V-TACH. DR. OSPINA CALLED AND ORDERS RECEIVED TO TRANSFER TO PCU. DR. LINDSEY ALSO CALLED AND AGREED THAT PATIENT NEEDS TO GO TO PCU AND WILL MOST LIKELY NEED A AICD PLACED.
--- NOTE | 2019-06-08 14:30 | NUR ---
Echocardiogram completed.
--- NOTE | 2019-06-08 14:44 | NUR ---
PATIENT TRANSFERRED TO ICU 12, REPORT GIVEN TO NIRANJAN LAWSON.
--- NOTE | 2019-06-08 14:54 | NUR ---
ARRIVAL TO ICU PT. ALERT AND ORIENTED UPON ARRIVAL. ABLE TO TRANSFER TO BED WITH WALKER AND GAIT BELT. PT. DENIES ANY CHEST PAIN OR PRESSURE UPON ARRIVAL. PLACED ON CHARGEMASTER ANALYST. CURRENTLY ON RA. VSS UPON ARRIVAL. WARM BLANKET PROVIDED. CALL LIGHT IN REACH, BED IN LOW POSITION. REPORT TO NERI UREÑA.
--- NOTE | 2019-06-08 15:00 | NUR ---
Patient arrived via wheelchair on tele from 326 to ICU 12. He was placed on monitor and VS done. He arrived on RA and sats mid to upper 90%'s. He is alert and oriented and able to communicate his needs. He is A-Fib with multiple PVC's. He transfered to bed using walker and some c/o of pain with transfer of L shoulder. Reported that Dr Jones was already consulted during his ECHo and will be getting D-fib for 24 beat run V-tach.
--- NOTE | 2019-06-08 17:18 | NUR ---
STOOD PATIENT AT BEDSIDE WITH TWO STAFF HE WAS TRYING TO GET OF BED AND HE USED URINAL AND WAS ABLE TO GO ABOUT 60ML OF LIGHT BOB URINE. HE IS WORRIED ABOUT WHERE IS. MEDICATED FOR LEFT SHOULDER PAIN WITH NORCO PER JUL. HE ASKED WHERE DINNER WAS AND WHEN BROUGHT INTO HIM HE SAID TAKE AWAY. DR MANTILLA CALLED AND NPO AFTER MIDNIGHT AND DOUBLE COREG DOSE FOR PM DOSE. CALLED DR DRAKE WOULD LIKE HER HERE BETWEEN 8-10. I CALLED AND SHE HURT HER KNEE BUT SHE WILL TRY.
--- NOTE | 2019-06-08 20:20 | NUR ---
[place] of Care: Care assumed at 1900hr. During bedside report, patient alert and oriented x3. Approx 10-15min after shift change, patient had syncope episode. Patient was answering questions when he stated he "did not feel good", and became unresponsive, requiring sternal rub to rouse patient. This syncope episode lasted approx 30 seconds, and patient is now back to alert/oriented x3. During syncope, no v-tach or PVC's noted on heart monitor, BP/VS wnl. Patient denies chest pain, discomfort, SOB or dyspnea. 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 X1 peripheral IV to lt wrist patent and intact. Call light in reach, makes needs known. Will continue to monitor for pain, safety, comfort.
[2019-06-09 03:26] LABS: BASOPHILS ABSOLUTE AUTO 0.03 K/mm3 (0.00-0.23); BASOPHILS PERCENT AUTO 0 % (0-2); EOSINOPHILS ABSOLUTE AUTO 0.25 K/mm3 (0.00-0.68); EOSINOPHILS PERCENT AUTO 4 % (0-6); Hematocrit 31.1 % (37.0-53.0); IMMATURE GRAN ABSOLUTE AUTO 0.01 K/mm3 (0.00-0.10); IMMATURE GRAN PERCENT AUTO 0 % (0-1); LYMPHOCYTES ABSOLUTE AUTO 1.12 K/mm3 (0.84-5.20); LYMPHOCYTES PERCENT AUTO 16 % (21-46); MONOCYTES ABSOLUTE AUTO 0.51 K/mm3 (0.16-1.47); MONOCYTES PERCENT AUTO 7 % (4-13); Mean Corpuscular HGB 24.3 pg (26.0-34.0); Mean Corpuscular HGB Conc 28.9 g/dL (31.5-36.5); Mean Corpuscular Volume 84 fL (80-100); Mean Platelet Volume 9.9 fL (9.1-12.4); NEUTROPHILS ABSOLUTE AUTO 5.13 K/mm3 (1.96-9.15); NEUTROPHILS PERCENT AUTO 73 % (41-73); Platelet Count 220 K/mm3 (150-400); RDW Coefficient Variation 19.4 % (11.7-14.2); RDW Standard Deviation 57.4 fL (35.1-46.3); Red Blood Cell Count 3.71 M/mm3 (4.30-5.90); White Blood Cell Count 7.05 K/mm3 (4.00-11.30)
[2019-06-09 03:42] LABS: Bun/Creatinine Ratio 32.5 (12.0-20.0); Calcium, Blood 8.3 mg/dL (8.5-10.1); Creatinine, Blood 1.63 mg/dL (0.60-1.20); Magnesium, Blood 2.4 mg/dL (1.6-2.4); Phosphorus, Blood 4.3 mg/dL (2.5-4.9); Potassium, Blood 4.3 mmol/L (3.5-5.5)
--- NOTE | 2019-06-09 06:28 | NUR ---
Shift Summary: Patient slept on/off throughout shift. No further full syncope episodes, but x1 near syncope episode at approx 0200hr. Patient became drowsy, slowed speech, and decrease LOC, but continued to respond (slowly) to verbal stimuli. Patient also state that he had mild anterior chest "ache" at this time, and mild SOB. VSS, and no significant changes to heart rhythm noted. Heart rhythm continued to show possible 2nd degree V block type II, with frequent PVC's. Patient boosted up in bed, HOB elevated, which relieved c/o SOB, and placed on 2L/NC, as O2% had been briefly declining from 95-98% to 87-89%. O2% has since maintained 96-100%. Patient also stated chest pain "comes and goes", for several months. C/o chest pain this shift lasted approx 15min then resolved for remainder of shift. Voiding using urinal in bed with staff assistance. States to be comfortable at this time. Call light in reach, makes needs known. Will continue to monitor until report to day shift RN.
--- NOTE | 2019-06-09 08:00 | NUR ---
INITIAL ASSESMENT PT ALERT, FLAT AFFECT AND COOPERATIVE WHILE DENYING PAIN AND FOLLOWING ALL COMMANDS. VSS WITH HR FROM AF TO HB WITH FREQ UNIFOCAL PVCS WITH MD AWARE. PALP PULSES T/O AND AFEBRILE WITH NO EDEMA. RA WITH SATS IN THE HIGH 90S AND NO S/S OF SOB AND CLEAR T/O. TOLERATING DIET WITH MODERATE APPETITE AND NO N/V AT THIS TIME WITH SOFT ROUND OBESE ABD. UO MINIMAL VIAT URINAL. SKIN INTACT. WILL CONT TO MONITOR
--- NOTE | 2019-06-09 12:00 | NUR ---
PT UPDATE MD ADVISED PT CARDIAC CONDITION WILL HAVE NO INTERVENTION AND WILL BE MEDICALLY MANAGED. ADVISED PT AND AND MANAGEMENT INITIATED. VSS, HR STABLE AND PVCS CONT. SL. PT UP TO CHAIOR WITH STANDBY ASSITS AND USING FWW TO AMBULATE TO BEDSIDE TOILET. WITLL CONT TO MONITOR
--- NOTE | 2019-06-09 19:00 | NUR ---
ASSUME CARE REPORT RECIEVED FROM OSCAR OFF GOING RN. MONITOR INTACT SHOWING HEART RATE OF 70'S WITH FREQUENT PCV AND ECTOPY. DENIES DISCOMFORT REQUEST LATE DINNER TRAY OBTAINED. STATES NEED TO VOID ASSIST WITH URINAL . NO SUCCESS. LUNG SOUNDS CLEAR UPPER LOBES WITH DECREASED AND COARSE LOWER LOBES. ABDOMEN SOFT WITH BOWEL SOUNDS FOUR QUADS. PEDAL PULSES PRESENT NO EDEMA NOTED. INFORMED OF PENDING TRANSFER TO PCU 9. CONTINUE TO MONITOR AND REPORT CHANGE IN PATIENT CONDITION.
--- NOTE | 2019-06-09 19:45 | NUR ---
ACCEPTING RN BORIS CALLED AND REQUESTED DELAY IN RECIEVING REPORT WILL CALL THIS RN BACK WHEN AVAILABEL.
--- NOTE | 2019-06-09 20:20 | NUR ---
REPORT GIVEN TO ACCEPTING RN PREPARE FOR TRANSFER TO PCU 9 . ATE 70% OF DINNER TRAY . VOIDS SMALL AMT OF URINE PER URINAL.
--- NOTE | 2019-06-09 20:45 | NUR ---
TRANSFER TO PCU 9 PER BED TOLERATES WELL
--- NOTE | 2019-06-09 22:50 | NUR ---
PT ARRIVAL TO PCU 9 Pt arrives to PCU 09 at 2041 via bed with CONCRETE BATCHING PLANT OPERATOR, Effie, at bedside. Pt slow to respond, flat affect. VSS. Breathing even and unlabored at rest on RA, audible wheezes with excertion and SNOWDEN with transfer. Pt transferred with slider sheet to PCU bed. RT called to evaluate pt with wheezing. Pt tachypneic at arrival. Pt able to state name and date of , oriented also to location and time, unable to answer why he is in the hospital and slow to follow directions. See shift assessment for detailed assessment.
--- NOTE | 2019-06-09 23:47 | NUR ---
PROVIDER CALLED Pt moaning in room, unresponsive to verbal, responding to sternal rub. this RN, fire extinguisher charger, and other RN at bedside. Vitals obtained. Pt opens eyes to pain, unable to communicate with RN at this time. Provider called and at bedside for evaluation. No new orders recieved at this time. Pt becoming increasingly more responsive at this time. Will continue to monitor.
--- NOTE | 2019-06-10 03:53 | NUR ---
Shift Summary See previous note for decreased LOC event. No further events this shift. VSS. No changes to telemetry noted. At this time, pt is alert with flat affect and delayed responses, oriented to self, place, following directions. Requires moderate assistance with tranferring. Transfers with two and gait belt and fww from bed to chair. Pt currently in recliner. Oligoruia. Pt is using call light to make needs known. Hand off given to NIRANJAN Browne who assumes care.
--- NOTE | 2019-06-10 07:53 | NUR ---
AM NOTE... ASSUMED CARE OF PT APROX 0700, PT IS UP IN RECLINER CHAIR RESTING WITH EYES CLOSED. PT'S VS STABLE AT THIS TIME. PT WAS ADMITTED FOR SYNCOPAL EPISODES. WHEN PT WAS ASKED IF HE FELT LIGHTHEADED/DIZZY HE STATED "SORTA" THEN CLOSED HIS EYES AND BECAME UNRESPONSIVE. PT'S VS STILL STABLE, PT WAS BREATHING BUT NOT OPENING EYES OR SPEAKING. STERNAL RUB PERFORMED PT YELLED OUT IN PAIN BUT DID NOT ANSWER ANY QUESTIONS. PT IS IN AFLUTTER W/PVCS IN THE 60'S. 1+ EDEMA NOTED TO HIS BLE. LS CLEAR IN THE UPPER LOBES FINE CRACKLES NOTE IN THE RLL. PT IS ON RA WITH O2 STATS >92%. BT PRESENT AND HYPOACTIVE, ABD IS MOD DISTENDED, FIRM AND TENDER TO PALP. WILL CONTINUE TO MONITOR.
--- NOTE | 2019-06-10 08:21 | NUR ---
PT UPDATE... PT VERY DROWSY AT THIS TIME WILL OPEN EYES TO VERBAL SIMULI BUT WILL NOT REPOND TO THIS RN. CARDIOLOGY PROVIDER IN THE ROOM AND IS NOTIFIED OF THIS CHANGE IN LOC. PT AT THIS TIME IS SLOWLY RESPONDING TO CARDIOLOGY PROVIDER'S QUESTIONS. PT ALSO STATES "I WANT TO GO HOME." THIS RN UPDATED THE PT ON HIS CURRENT CONDITION AND THAT IT WOULD NOT BE SAFE TO SEND HIM HOME WITH ALTERED MENTAL STATUS. WILL CONTINUE TO MONITOR.
--- NOTE | 2019-06-10 17:11 | NUR ---
SHIFT SUMMARY... PT'S LOC HAS GREATLY IMPROVED FROM THIS AM. PT IS A&Ox4 AWAKE AND ALERT AND ABLE TO ANSWER QUESTIONS APROPPRIATLY. PT'S VS HAVE BEEN STABLE T/O SHIFT. PT DENIES PAIN AT THIS TIME. PT HAS BEEN SLEEPING IN THE BED SINCE THIS EARLY AFTERNOON. PT DENIES CHEST PAIN/PRESSURE N/V OR SOB AT THIS TIME. CALL LIGHT IN REACH, WILL CONTINUE TO MONITOR UNTIL REPORT IS GIVEN TO ONCOMING RN.
[2019-06-11 03:56] LABS: BASOPHILS ABSOLUTE AUTO 0.03 K/mm3 (0.00-0.23); BASOPHILS PERCENT AUTO 0 % (0-2); EOSINOPHILS ABSOLUTE AUTO 0.17 K/mm3 (0.00-0.68); EOSINOPHILS PERCENT AUTO 3 % (0-6); Hematocrit 30.1 % (37.0-53.0); Hemoglobin 8.9 g/dL (13.5-17.5); IMMATURE GRAN ABSOLUTE AUTO 0.02 K/mm3 (0.00-0.10); IMMATURE GRAN PERCENT AUTO 0 % (0-1); LYMPHOCYTES ABSOLUTE AUTO 1.24 K/mm3 (0.84-5.20); LYMPHOCYTES PERCENT AUTO 18 % (21-46); MONOCYTES ABSOLUTE AUTO 0.55 K/mm3 (0.16-1.47); MONOCYTES PERCENT AUTO 8 % (4-13); Mean Corpuscular HGB 24.4 pg (26.0-34.0); Mean Corpuscular HGB Conc 29.6 g/dL (31.5-36.5); Mean Corpuscular Volume 83 fL (80-100); Mean Platelet Volume 10.9 fL (9.1-12.4); NEUTROPHILS ABSOLUTE AUTO 4.72 K/mm3 (1.96-9.15); NEUTROPHILS PERCENT AUTO 70 % (41-73); Platelet Count 228 K/mm3 (150-400); RDW Coefficient Variation 19.7 % (11.7-14.2); RDW Standard Deviation 57.1 fL (35.1-46.3); Red Blood Cell Count 3.65 M/mm3 (4.30-5.90); White Blood Cell Count 6.73 K/mm3 (4.00-11.30)
[2019-06-11 04:23] LABS: Albumin, Blood 2.9 g/dL (3.4-5.0); Albumin/Globulin Ratio 0.9 (0.8-1.8); Bun/Creatinine Ratio 36.6 (12.0-20.0); Calcium, Blood 8.4 mg/dL (8.5-10.1); Creatinine, Blood 1.53 mg/dL (0.60-1.20); Globulin, Blood 3.4 g/dL (2.2-4.0); Potassium, Blood 4.7 mmol/L (3.5-5.5); Total Protein, Blood 6.3 g/dL (6.4-8.2)
--- NOTE | 2019-06-11 05:18 | NUR ---
SHIFT SUMMARY PT SLEEPING COMFORTABLY IN ROOM IN RECLINER AT THIS TIME. NO ACUTE CHANGES IN STATUS T/O NIGHT. PT SLEPT WELL. PT WAS UP TO RR W/ 4WW MULTIPLE TIMES T/O NIGHT. PT WAS STEADY ON FEET W/ 1 PERSON ASSIST. RESP EVEN UNLABORED ON RA W/ SATS >92%. PT HAD NO EPISDOES OF UNRESPONSIVNESS T/O NIGHT, PT REMAINED AOX4. PT DID REPORT L SHOULDER PAIN ONCE DURING NIGHT WAS MEDICATED PER EMAR, AND KPAD PROVIDED FOR COMFORT. DENIED OTHER NEEDS. PT UP IN RECLINER TO SLEEP AT THIS TIME. PT REFUSED BEDSIDE REPORT THIS AM REPORTS "NO LET ME SLEEP". CALL LIGHT WITHIN REACH OF PT.
--- NOTE | 2019-06-11 07:32 | NUR ---
AM NOTE... ASSUMED CARE OF PT APROX 0700. PT IS A&Ox4 AND MUCH MORE AWAKE THAN YESTERDAY AT THIS TIME. PT DENIES CHEST PAIN/PRESSURE N/V OR SOB AT THIS TIME. PT ALSO DENIES ANY LIGHTHEADED/DIZZINESS. PT'S VS STABLE PT IS IN AFLUTTER IN THE 50'S-60'S PER RESERVATION CLERK. PT HAS 2+ PITTING EDEMA TO HIS BLE. L/S CLEAR IN THE UPPER LOBES AND DIM IN THE LOWER. BT PRESENT AND HYPOACTIVE, ABD IS MOD DISTENDED, NOT FIRM YESTERDAY AND NONTENDER TO PALP. PT IS VERY ANXIOUS TO D/C HOME TODAY. CALL LIGHT IN REACH WILL CONTINUE TO MONITOR.
--- NOTE | 2019-06-11 11:20 | NUR ---
Initial palliative care consult: Gerard is a 78 year old gentleman with a history of parkinson's CAD, ischemic cardiomyopathy with EF of 25%, DM, HTN, neuropathy, a-fib on eliquis, CVA, gout, elevated cholesterol. He recently had a fall at home. He reports he lost his brother to Parkinson's disease last March. Rae is present during the visit today. He lives with his Rae who is his caregiver. Rae has a "bad knee" and has recently retired. Rae's daughter lives a few blocks away and helps out when she is able to. She works outside her home. He reports he has a walker at home and no other medical equipment. He reports that it's getting more difficult to get around walking at home. He reports he has fallen in the past. Rae is unable to pick him up when he falls. He reports that he is still able to perfom his own ADLs but admits that it is becoming more difficult. He reports occasional incontinence. Sometimes he has difficulty laying flat to sleep and will sleep in a recliner. He states he has trouble with balance and memory and has noticed that his swallowing is starting to become more of a problem. He states that if he takes small sips with a straw and small bites he does better. Discussed his cardiac and parkinson's diagnoses and how they are each progressive in nature. Discussed increasing care needs as his conditions continue to advance. Encouraged the improtance of planning for the future. Current plan is to go home with Bella and have therapy work with him. Discussed the options of HH and hospice and how they are different. Answered questions re: hospice and provided brochures for HH and hospice services. LM for CHRISTIN Hillman, to bring information re: community resources, in home care giving for Gerard and Rae. Rae had questions about medical equipment and did state that having a bed that the head could raise up may be beneficial for Gerard. Gerard is a DNR and confirmed that this is his wish. Denies symptoms at the time of my visit. This functional tester typewriters did assist him into the bathroom so he could urinate. He walks with a slow, weak gait using a walker and gait belt. PC will continue to follow for disease process education, advanced care planning and symptom management prn.
[2019-06-11] MEDS ORDERED: CARV6.25 PO (13:54)
[2019-06-11] MEDS ORDERED: RANO500T PO (13:55)
[2019-06-11] MEDS ORDERED: MEXI200 PO (13:55)
--- NOTE | 2019-06-11 15:24 | NUR ---
PT UPDATE... PT WAS TO D/C HOME W/HOME HEALTH, HOWEVER WHEN THE PT WAS WORKING WITH PT/OT PT HAD WALKED OUT INTO THE HALLWAY APROX 20 FT AND BECAME WEAK AND UNABLE TO WALK. (SEE PT/OT NOTE.) PROVIDER WAS NOTIFIED, PER PT/OT PT IS RECOMMENDED TO D/C TO SNF AND NOT HOME HEALTH. WILL CONTINUE TO MONITOR.
--- NOTE | 2019-06-11 17:06 | NUR ---
SHIFT SUMMARY... PT IS TO D/C TO SNF, PT AND ARE AGREEABLE WITH THIS PLAN OF CARE. PT TOLD THIS RN THAT HE WAS HAVING "PAIN AND BURNING" AND INCREASED FREQUENCY WITH VOIDS. PROVIDER NOTIFIED AND UA WAS ORDERED. PT'S VS HAVE BEEN STABLE T/O SHIFT. PT DENIES ANY CHEST PAIN/PRESSURE N/V OR SOB THIS SHIFT. PT'S WAS AT THE BEDSIDE MOST OF THIS SHIFT. CALL LIGHT IN REACH, WILL CONTINUE TO MONITOR UNTIL REPORT IS GIVEN TO ONCOMING RN.
[2019-06-11 19:38] LABS: Source, Urine Clean Catch
[2019-06-11 19:50] LABS: Appearance, Urine Hazy (Clear); Bilirubin, Urine Neg (Neg); Blood, Urine 3+ (Neg); Color, Urine Yellow (P-Yellow); Glucose Qualitative, Urine Neg (Neg); Ketones, Urine Neg (Neg); Leukocyte Esterase, Urine 3+ (Neg); Nitrite, Urine Pos (Neg); Protein, Urine 2+ (Neg); Urobilinogen, Urine NORM (Normal)
[2019-06-11 19:51] LABS: Bacteria Many /hpf; Squamous Epithelial Cells Few /hpf (Few); White Blood Cells, Urine 25-50 /hpf (0-5)
[2019-06-11 19:52] LABS: Mucus Light (0-Heavy)
--- NOTE | 2019-06-12 05:13 | NUR ---
SHIFT SUMMARY PT RESTING IN ROOM COMFORTABLY AT THIS TIME. NO ACUTE CHANGES IN STATUS T/O NIGHT. PT SLEPT WELL AND DENIED ANY CP OR SOB. RESP EVEN UNLABORED ON RA W/ SATS >92%. PT HAD ONE SHORT EPISODE OF "BLANK STARING" THAT WAS WHITTNESED BY ANOTHER RN. RN REPORTED PT REVOCERED AFTER APPROX 5 MIN. DID NOT APPEAR TO BE IN DISTRESS AND VSS. PT DENIED OTHER NEEDS. PT AMBULATED W/ LINE ERECTOR APPRENTICE THIS AM AROUND UNIT. TOLERATED FAIR. PT BACK TO ROOM FEELING TIRED. BACK IN RECLINER. CALL LIGHT WITHIN REACH. WILL GIVE BEDSIDE REPORT TO UNCOMING RN.
--- NOTE | 2019-06-12 08:44 | NUR ---
AM NOTE... ASSUMED CARE OF PT APROX 0700. PT IS A&Ox4. PT IS TO D/C TO SNF TODAY. PT'S VS STABLE. PT HAS 1+ PITTING EDEMA TO HIS BLE AND TRC EDEMA TO HIS LEFT ARM/HAND. L/S CLEAR T/O DIM IN THE BASES. BT PRESENT AND HYPOACTIVE, ABD IS SOFT AND NONTENDER TO PALP. PT DENIES ANY LIGHT HEADED/DIZZINESS, CHEST PAIN/PRESSUR N/V OR SOB. CALL LIGHT IN REACH WILL CONTINUE TO MONITOR.
--- NOTE | 2019-06-12 17:24 | NUR ---
PT D/C. PT D/C TO SNF. ALL OF PT'S BELONGINGS PACKED AND SENT WITH THE PT. IV WAS REMOVED WNL. PT DENIES CHEST PAIN/PRESSURE N/V OR SOB AT THIS TIME.
== END 2019-06-12 17:02 | DRG 291 ==
LOC: ER 21:19 → MEDS 21:20 → ICUW 06-08 14:27 → PCU 06-09 20:42
PROVIDERS: Emergency Medicine; Internal Medicine; Internal Medicine Gastroenterology; ADMIT Hospitalist
DX: I13.0 Hypertensive heart and chronic kidney disease with heart failure and stage 1 through stage 4 chronic kidney disease, or unspecified chronic kidney disease (principal); I50.43 Acute on chronic combined systolic (congestive) and diastolic (congestive) heart failure; Z51.5 Encounter for palliative care; N18.3 Chronic kidney disease, stage 3 (moderate); D63.1 Anemia in chronic kidney disease; I25.5 Ischemic cardiomyopathy; I25.10 Atherosclerotic heart disease of native coronary artery without angina pectoris; W19.XXXA Unspecified fall, initial encounter; S49.82XA Other specified injuries of left shoulder and upper arm, initial encounter; E78.5 Hyperlipidemia, unspecified; Z95.0 Presence of cardiac pacemaker; G20 Parkinson's disease; E11.22 Type 2 diabetes mellitus with diabetic chronic kidney disease; E11.42 Type 2 diabetes mellitus with diabetic polyneuropathy; Z79.4 Long term (current) use of insulin; I48.0 Paroxysmal atrial fibrillation; Z79.01 Long term (current) use of anticoagulants; Z89.011 Acquired absence of right thumb; Z95.1 Presence of aortocoronary bypass graft; M10.9 Gout, unspecified; F10.21 Alcohol dependence, in remission; Z87.820 Personal history of traumatic brain injury; Z79.82 Long term (current) use of aspirin
CPT/HCPCS: 36415; 70450; 71045; 73030; 80048; 80053; 81001; 82728; 82947; 83540; 83550; 83735; 83880; 84100; 84484; 85025; 85610; 85730; 87077; 87086; 87186; 93005; 93010; 93306; 97110; 97112; 97116; 97162; 99285-25; A9270; A9270-GY; G0378; J0696; J2405; J7050

== ENCOUNTER → 2019-07-08 | Outpatient (CLI) | payer OTHER ==
[~2019-07-08] MED LIST changes: +ACET325 PO; +Bumetanide1 MG PO; +GABA100 PO; +MEXI200 PO; +RANO500T PO
[2019-07-08 09:30] LABS: Source, Urine Clean Catch
[2019-07-08 12:52] LABS: Bilirubin, Urine Neg (Neg); Blood, Urine Neg (Neg); Glucose Qualitative, Urine Neg (Neg); Ketones, Urine Neg (Neg); Leukocyte Esterase, Urine 1+ (Neg); Nitrite, Urine Neg (Neg); Protein, Urine 1+ (Neg); Urobilinogen, Urine NORM (Normal)
[2019-07-08 13:14] LABS: Appearance, Urine Clear (Clear); Color, Urine Yellow (P-Yellow)
[2019-07-08 13:15] LABS: Red Blood Cells, Urine Not Seen /hpf (0-2)
[2019-07-08 13:16] LABS: Bacteria Few /hpf; Squamous Epithelial Cells Rare /hpf (Few)
== END | disposition home or self-care (01) ==
LOC: LAB SHORT 09:27 → LAB 09:27
PROVIDERS: Nurse Practitioner Family
DX: R30.9 Painful micturition, unspecified (principal); B96.4 Proteus (mirabilis) (morganii) as the cause of diseases classified elsewhere
CPT/HCPCS: 81001; 87086

== ENCOUNTER → 2019-08-24 | Outpatient (CLI) | payer OTHER ==
[~2019-08-24] MED LIST changes: +ONDA4ODT MM
== END | disposition home or self-care (01) ==
LOC: LAB 12:48 → LAB SHORT 12:48
DX: E11.42 Type 2 diabetes mellitus with diabetic polyneuropathy (principal); L97.509 Non-pressure chronic ulcer of other part of unspecified foot with unspecified severity
CPT/HCPCS: 87070; 87077; 87186; 87205

== ENCOUNTER 2019-08-26 18:48 | Emergency (ER) | payer OTHER ==
[~2019-08-26] VITALS: Ht 167.6 cm; Wt 83.9 kg
[~2019-08-26 18:48] MED LIST changes: -ONDA4ODT MM
[2019-08-26] MEDS ORDERED: ONDA4ODT MM (20:02)
== END 2019-08-26 20:56 | disposition home or self-care (01) ==
LOC: ER 18:48
DX: S00.01XA Abrasion of scalp, initial encounter (principal); I11.0 Hypertensive heart disease with heart failure; I50.9 Heart failure, unspecified; Z79.899 Other long term (current) drug therapy; Z79.84 Long term (current) use of oral hypoglycemic drugs; Z79.82 Long term (current) use of aspirin; W18.30XA Fall on same level, unspecified, initial encounter
CPT/HCPCS: 70450

== ENCOUNTER 2019-09-28 20:56 | Inpatient (IN) | payer OTHER ==
[~2019-09-28] VITALS: Ht 170.2 cm; Wt 86.9 kg
[~2019-09-28 20:56] MED LIST changes: +ONDA4ODT MM
[2019-09-28 21:38] LABS: BASOPHILS ABSOLUTE AUTO 0.05 K/mm3 (0.00-0.23); BASOPHILS PERCENT AUTO 1 % (0-2); EOSINOPHILS ABSOLUTE AUTO 0.13 K/mm3 (0.00-0.68); EOSINOPHILS PERCENT AUTO 2 % (0-6); Hematocrit 30.8 % (37.0-53.0); Hemoglobin 9.4 g/dL (13.5-17.5); IMMATURE GRAN ABSOLUTE AUTO 0.02 K/mm3 (0.00-0.10); IMMATURE GRAN PERCENT AUTO 0 % (0-1); LYMPHOCYTES ABSOLUTE AUTO 2.24 K/mm3 (0.84-5.20); LYMPHOCYTES PERCENT AUTO 30 % (21-46); MONOCYTES ABSOLUTE AUTO 0.68 K/mm3 (0.16-1.47); MONOCYTES PERCENT AUTO 9 % (4-13); Mean Corpuscular HGB 27.4 pg (26.0-34.0); Mean Corpuscular HGB Conc 30.5 g/dL (31.5-36.5); Mean Corpuscular Volume 90 fL (80-100); Mean Platelet Volume 10.1 fL (9.1-12.4); NEUTROPHILS ABSOLUTE AUTO 4.42 K/mm3 (1.96-9.15); NEUTROPHILS PERCENT AUTO 59 % (41-73); Platelet Count 260 K/mm3 (150-400); RDW Coefficient Variation 20.1 % (11.7-14.2); RDW Standard Deviation 66.7 fL (35.1-46.3); Red Blood Cell Count 3.43 M/mm3 (4.30-5.90); White Blood Cell Count 7.54 K/mm3 (4.00-11.30)
[2019-09-28 21:51] LABS: Albumin/Globulin Ratio 0.8 (0.8-1.8); Bilirubin, Total 0.8 mg/dL (0.1-1.0); Bun/Creatinine Ratio 22.5 (12.0-20.0); Calcium, Blood 8.5 mg/dL (8.5-10.1); Creatinine, Blood 1.29 mg/dL (0.60-1.20); Globulin, Blood 3.7 g/dL (2.2-4.0); Potassium, Blood 4.5 mmol/L (3.5-5.5); Total Protein, Blood 6.7 g/dL (6.4-8.2); Troponin I 0.027 ng/mL (0.000-0.040)
[2019-09-29] MEDS ORDERED: ELIQUIS5 MG PO (00:13)
[2019-09-29] MEDS ORDERED: RANOLAZINE ER500 M2 PO (00:16)
[2019-09-29] MEDS ORDERED: Carac30 GM TOP (00:17)
--- NOTE | 2019-09-29 01:58 | NUR ---
ADMISSION APPROX 0048 PATIENT ARRIVED FROM ER VIA GURNEY. PATIENT ABLE TO PIVOT TRANSFER WITH 1 PERSON ASSIST BUT WAS VERY WEAK WITH DYSPNEA. PATIENT SKIN IS C/D/I BUT FRAGILE. PATIENT ORIENTED TO ROOM, CALL LIGHT AND HOSPITAL POLICIES. PATIENT CONFUSED/FORGETFULL AND INTERMITTENT REORIENTATION NEEDED, BED ALARM ON, VSS. ADMISSION COMPLETED AND PATIENT CHANGED FROM WET UNDERGARMEDNTS TO CLEAN, DRY ONES.
--- NOTE | 2019-09-29 04:06 | NUR ---
SHIFT SUMMARY: PATIENT SEEMS MORE FORGETFUL THAN CONFUSED AT THIS POINT, HE CAN ANSWER ALMOST ALL OF MY QUESTIONS CORRECTLY AND THEN PROMPTLY FORGET WHAT WE WERE DISCUSSING. PATIENT STILL APPEARS TO BE AN AFIB RHYTHUM BUT THE RATE IS IN THE 50'S. PATIENT IS INTERMITTENTLY INCONTINENT WHEN TRYING TO USE THE URINAL AFTER LASI, X2 BEDCHANGES COMPLETED. PATIENT DNR BAND IN PLACE ON LEFT WRIST, VERIFIED WITH GAL RN. BED LOW AND LOCKED WITH EXIT ALARM ON, CALL LIGHT WITHIN REACH, MONITORING CLOSELY.
[2019-09-29 06:25] LABS: BASOPHILS ABSOLUTE AUTO 0.02 K/mm3 (0.00-0.23); BASOPHILS PERCENT AUTO 0 % (0-2); EOSINOPHILS ABSOLUTE AUTO 0.09 K/mm3 (0.00-0.68); EOSINOPHILS PERCENT AUTO 2 % (0-6); Hematocrit 30.5 % (37.0-53.0); Hemoglobin 8.9 g/dL (13.5-17.5); IMMATURE GRAN ABSOLUTE AUTO 0.01 K/mm3 (0.00-0.10); IMMATURE GRAN PERCENT AUTO 0 % (0-1); LYMPHOCYTES ABSOLUTE AUTO 1.19 K/mm3 (0.84-5.20); LYMPHOCYTES PERCENT AUTO 20 % (21-46); MONOCYTES ABSOLUTE AUTO 0.57 K/mm3 (0.16-1.47); MONOCYTES PERCENT AUTO 10 % (4-13); Mean Corpuscular HGB 26.4 pg (26.0-34.0); Mean Corpuscular HGB Conc 29.2 g/dL (31.5-36.5); Mean Corpuscular Volume 91 fL (80-100); Mean Platelet Volume 9.9 fL (9.1-12.4); NEUTROPHILS ABSOLUTE AUTO 4.13 K/mm3 (1.96-9.15); NEUTROPHILS PERCENT AUTO 69 % (41-73); Platelet Count 251 K/mm3 (150-400); RDW Coefficient Variation 19.9 % (11.7-14.2); RDW Standard Deviation 66.8 fL (35.1-46.3); Red Blood Cell Count 3.37 M/mm3 (4.30-5.90); White Blood Cell Count 6.01 K/mm3 (4.00-11.30)
[2019-09-29 08:15] LABS: Bun/Creatinine Ratio 21.1 (12.0-20.0); Calcium, Blood 8.3 mg/dL (8.5-10.1); Creatinine, Blood 1.28 mg/dL (0.60-1.20); Potassium, Blood 3.5 mmol/L (3.5-5.5)
--- NOTE | 2019-09-29 18:53 | NUR ---
PCU TRANSFER DAYSHIFT SUMMARY PATIENT REMAINED ALERT AND ORIENTED TO SELF, LOCATION AND MONTH T/O SHIFT - SOME CONFUSION NOTED - REORIENTS EASILY. PATIENT WORKED WITH PT/OT THIS SHIFT AND TOLERATED WELL. RESP E/U ON ROOM AIR T/O SHIFT. PATIENT UP IN CHAIR FOR MAJORITY OF SHIFT - TOLERATED DIET WELL. PATIENT EDUCATED TO CHF AND FLUID RESTRICTION T/O SHIFT. NO ACUTE CHANGES NOTED, PATIENT REMAINED IN CONTROLLED AFIB RATE 50-60'S BPM. REPORT GIVEN TO MEDICAL FLOOR NIRANJAN LEONARD.
--- NOTE | 2019-09-30 04:32 | NUR ---
SHIFT SUMMARY NO ACUTE CHANGES THIS SHIFT. PT DENIES ANY SOB. SWELLING MINIMAL-+1 TO BLE'S. ABD DISTENDED WHICH PT STATED WAS NOT NORMAL FOR HIM, HE BELIEVED IT WAS BUILT UP FLUID. PT REMAINED ON RA. REQUESTED TO SLEEP SITTING UP. RECLINER PLACED IN ROOM AND PT SLEPT IN IT OFF AND ON THROUGHOUT THE NIGHT. NO COMPLAINTS OF PAIN. PT PLEASANT AND COOPERATIVE. TELEMETRY AFIB W/ BBB AT 66. VITAL SIGNS STABLE. WILL CONTINUE TO MONITOR.
[2019-09-30 05:09] LABS: BASOPHILS ABSOLUTE AUTO 0.03 K/mm3 (0.00-0.23); BASOPHILS PERCENT AUTO 1 % (0-2); EOSINOPHILS ABSOLUTE AUTO 0.19 K/mm3 (0.00-0.68); EOSINOPHILS PERCENT AUTO 3 % (0-6); Hematocrit 31.2 % (37.0-53.0); Hemoglobin 9.2 g/dL (13.5-17.5); IMMATURE GRAN ABSOLUTE AUTO 0.02 K/mm3 (0.00-0.10); IMMATURE GRAN PERCENT AUTO 0 % (0-1); LYMPHOCYTES ABSOLUTE AUTO 1.49 K/mm3 (0.84-5.20); LYMPHOCYTES PERCENT AUTO 23 % (21-46); MONOCYTES PERCENT AUTO 9 % (4-13); Mean Corpuscular HGB 26.7 pg (26.0-34.0); Mean Corpuscular HGB Conc 29.5 g/dL (31.5-36.5); Mean Corpuscular Volume 90 fL (80-100); Mean Platelet Volume 9.7 fL (9.1-12.4); NEUTROPHILS ABSOLUTE AUTO 4.24 K/mm3 (1.96-9.15); NEUTROPHILS PERCENT AUTO 65 % (41-73); Platelet Count 240 K/mm3 (150-400); RDW Standard Deviation 66.6 fL (35.1-46.3); Red Blood Cell Count 3.45 M/mm3 (4.30-5.90); White Blood Cell Count 6.57 K/mm3 (4.00-11.30)
[2019-09-30 05:32] LABS: Bun/Creatinine Ratio 22.7 (12.0-20.0); Calcium, Blood 8.3 mg/dL (8.5-10.1); Creatinine, Blood 1.28 mg/dL (0.60-1.20); Potassium, Blood 3.4 mmol/L (3.5-5.5)
--- NOTE | 2019-09-30 17:20 | NUR ---
SHIFT SUMMARY PATIENT DENIES PAIN, NAUSEA, AND SHORTNESS OF BREATH. PATIENT WORKED WITH PT TODAY. PATIENT UP SBA W/ FWW. PATIENT WALKED IN HALLWAY TODAY. PATIENT HAS GOOD PO INTAKE. PATIENT PROBABLE DISCHARGE TOMORROW.
--- NOTE | 2019-10-01 04:32 | NUR ---
SHIFT SUMMARY ADMITTED FOR CHF EXACERBATION. DNR CODE. PLAN IS FOR DIURESING. EXPECTED TO DC TODAY. STRICT I&O'S, DAILY STANDING WT'S, RA, CARDIAC DIET, 1 ASSIST W/FWW, PILLS WHOLE W/APPLESAUCE, 2000 ML FLUID RESTRICTION. YOMBA SHOSHONE. BLE EDEMA. NGUYEN IS AT HOME. ZESTRIL HELD DUE TO 101/58 BP. TRENDING MILDLY HYPOTENSIVE. AC CHEMSTICKS. NO NEW CONCERNS.
--- NOTE | 2019-10-01 12:40 | NUR ---
DISCHARGE SUMMARY PT STABLE, D/C HOME WITH , PT TRANSPORTED VIA W/C AND BELONGINGS SENT HOME WITH PT. PERSCRIPTIONS FAXED TO [email or web address] IN [place]. IV D/C AND CATHATER INTACT. PT HAD NO FURTHUR QUESTIONS ABOUT D/C INSTRUCTIONS. D/C INSTRUCTIONS REVIEWED WITH PT.
== END 2019-10-01 13:50 | disposition home health service (06) | DRG 291 ==
LOC: ER 20:56 → PCU 23:24 → MEDS 23:24 → ERHOLD 23:24 → PCU 09-29 00:40 → MEDS 09-29 18:48 → ENPENDDIS 10-01 11:00 → MEDS 10-01 13:50
PROVIDERS: Emergency Medicine; Internal Medicine; Nurse Practitioner Acute Care; ADMIT Family Medicine
DX: I13.0 Hypertensive heart and chronic kidney disease with heart failure and stage 1 through stage 4 chronic kidney disease, or unspecified chronic kidney disease (principal); I50.43 Acute on chronic combined systolic (congestive) and diastolic (congestive) heart failure; N18.3 Chronic kidney disease, stage 3 (moderate); E11.22 Type 2 diabetes mellitus with diabetic chronic kidney disease; I48.0 Paroxysmal atrial fibrillation; G20 Parkinson's disease; R09.02 Hypoxemia; E11.51 Type 2 diabetes mellitus with diabetic peripheral angiopathy without gangrene; I25.5 Ischemic cardiomyopathy; I25.10 Atherosclerotic heart disease of native coronary artery without angina pectoris; D63.1 Anemia in chronic kidney disease; I71.4 Abdominal aortic aneurysm, without rupture; E78.5 Hyperlipidemia, unspecified; M10.9 Gout, unspecified; Z99.3 Dependence on wheelchair; Z86.73 Personal history of transient ischemic attack (TIA), and cerebral infarction without residual deficits; Z87.891 Personal history of nicotine dependence; Z79.82 Long term (current) use of aspirin; Z79.84 Long term (current) use of oral hypoglycemic drugs
CPT/HCPCS: 36415; 71045; 80048; 80053; 82947; 83880; 84484; 85025; 93005; 93010; 94762; 96374; 97116; 97162; 97166; 97530; 97535; 99285-25; A9270; A9270-GY; J1940

== ENCOUNTER 2019-10-15 06:38 | Day surgery (SDC) | payer OTHER ==
[~2019-10-15] VITALS: Ht 167.6 cm; Wt 87.0 kg
[~2019-10-15 06:38] MED LIST changes: +Carac30 GM TOP; +RANOLAZINE ER500 M2 PO
[2019-10-15 07:12] LABS: BASOPHILS ABSOLUTE AUTO 0.04 K/mm3 (0.00-0.23); BASOPHILS PERCENT AUTO 1 % (0-2); EOSINOPHILS ABSOLUTE AUTO 0.18 K/mm3 (0.00-0.68); EOSINOPHILS PERCENT AUTO 2 % (0-6); Hematocrit 31.2 % (37.0-53.0); Hemoglobin 9.3 g/dL (13.5-17.5); IMMATURE GRAN ABSOLUTE AUTO 0.03 K/mm3 (0.00-0.10); IMMATURE GRAN PERCENT AUTO 0 % (0-1); LYMPHOCYTES PERCENT AUTO 18 % (21-46); MONOCYTES ABSOLUTE AUTO 0.72 K/mm3 (0.16-1.47); MONOCYTES PERCENT AUTO 9 % (4-13); Mean Corpuscular HGB 26.6 pg (26.0-34.0); Mean Corpuscular HGB Conc 29.8 g/dL (31.5-36.5); Mean Corpuscular Volume 89 fL (80-100); Mean Platelet Volume 9.6 fL (9.1-12.4); NEUTROPHILS ABSOLUTE AUTO 5.95 K/mm3 (1.96-9.15); NEUTROPHILS PERCENT AUTO 71 % (41-73); Platelet Count 268 K/mm3 (150-400); RDW Coefficient Variation 19.3 % (11.7-14.2); RDW Standard Deviation 62.7 fL (35.1-46.3); White Blood Cell Count 8.42 K/mm3 (4.00-11.30)
[2019-10-15 07:26] LABS: International Normalized Ratio 1.12; Prothrombin Time Results 11.9 Sec (9.7-11.5)
[2019-10-15 07:27] LABS: Anion Gap 6 mmol/L (6-16); Blood Urea Nitrogen 23 mg/dL (8-24); Bun/Creatinine Ratio 20.4 (12.0-20.0); CO2, Blood 28 mmol/L (21-32); Calcium, Blood 8.4 mg/dL (8.5-10.1); Chloride, Blood 109 mmol/L (98-108); Creatinine, Blood 1.13 mg/dL (0.60-1.20); Glomerular Filtration Rate >60 (60-); Glucose, Blood 114 mg/dL (70-99); Potassium, Blood 4.2 mmol/L (3.5-5.5); Sodium, Blood 143 mmol/L (136-145)
--- NOTE | 2019-10-15 09:05 | NUR ---
PT BACK FROM PROCEDURE. PT TOLERATED PROCEDURE WELL. R FEMORAL ACCESS SITE STABLE WITH TEGADERM DRESSING IN PLACE AND IS C/D/I. ANGIOSEAL IN PLACE. DENIES ANY PAIN. VSS. WILL CONTINUE TO MONITOR.
--- NOTE | 2019-10-15 12:13 | NUR ---
DISCHARGE PT ASSISTED WITH DRESSING. R FEMORAL SITE DRESSING IS C/D/I NO SIGN OF BLEEDING, OOZING OR HEMATOMA NOTED. VSS. PT DENIES PAIN. IV DCD WITH CATH INTACT. PT STATES HIS UNDERSTANDING OF DISCHARGE AND SITE CARE INSTRUCTIONS AND DENY ANY QUESTIONS OR CONCERNS. PT TAKEN TO EXIT VIA WHEELCHAIR WHERE WAS WAITING. BOTH DISCHARGE AND SITE CARE INSTRUCTIONS GONE OVER WITH WHO DENIES ANY QUESTIONS OR CONCERNS.
== END 2019-10-15 12:43 | disposition home or self-care (01) ==
LOC: MHTC 06:38
PROVIDERS: Radiology Diagnostic Radiology
DX: I70.212 Atherosclerosis of native arteries of extremities with intermittent claudication, left leg (principal); I25.10 Atherosclerotic heart disease of native coronary artery without angina pectoris; I12.9 Hypertensive chronic kidney disease with stage 1 through stage 4 chronic kidney disease, or unspecified chronic kidney disease; E11.22 Type 2 diabetes mellitus with diabetic chronic kidney disease; N18.9 Chronic kidney disease, unspecified; I48.91 Unspecified atrial fibrillation; Z79.82 Long term (current) use of aspirin; Z79.899 Other long term (current) drug therapy
CPT/HCPCS: 80048; 85025; 85347; 85610; 99152; 99153; C1725; C1760; C1769; C1887; C1894; J1644; J2250; J3010; J7030; Q9967

== ENCOUNTER → 2020-01-01 | Outpatient (CLI) | payer OTHER | END | disposition home or self-care (01) | LOC: LAB 19:03 → LAB SHORT 19:03 | DX: I83.009 Varicose veins of unspecified lower extremity with ulcer of unspecified site (principal); L97.819 Non-pressure chronic ulcer of other part of right lower leg with unspecified severity | CPT/HCPCS: 87070; 87205 ==